=== PATIENT | male | born 1970 | race Caucasian/White ===

== ENCOUNTER 2023-10-15 10:50 | Emergency (ER) | payer MEDICARE, SELFPAY ==
--- NOTE | ~2023-10-15 | XR_ITS ---
XR finger 5th RT min 2V Ordering provider: Radha Boogie APRN History: . LACERATION TO 5TH DIGIT AT DISTAL PHALANGE THRU NAIL BED . Comparison: None. FINDINGS: BONES: No acute fracture or dislocation. Lucency seen in the distal metaphysis of the medial phalanx with no definite fracture. JOINT SPACES: Normal. SOFT TISSUES: Laceration is seen in the tip of the distal phalanx of the little finger IMPRESSION: No definite acute osseous abnormality. Reviewed, dictated and finalized at location A.
[2023-10-15 11:01] VITALS: BP 150/94; PULSE 84; RESP 20; TEMP 37.4; O2SAT 94
--- NOTE | 2023-10-15 11:21 | ED.WOUNDLAC ---
HPI - Wound/Laceration General Chief Complaint: Wound/Laceration Stated Complaint: Right Hand Finger Laceration Time Seen by Provider: 10/15/23 11:21 History of Present Illness HPI narrative: Patient presents with complaints of laceration to the right fifthfinger. He reports that he was pulling parts and a salvage chart today, is unsure of what exactly caused his laceration. He does need a tetanus updated today. There is active bleeding upon arrival. He denies other injury and trauma. Voices no other concerns or complaints at this time. Related Data Home Medications Medication Instructions Recorded Confirmed levothyroxine 150 mcg tablet 150 mcg PO DAILY 10/15/23 10/15/23 sertraline 50 mg tablet 50 mg PO DAILY 10/15/23 10/15/23 sodium chloride 0.9 % for 1 ml inhalation DAILY 10/15/23 10/15/23 nebulization tadalafil 10 mg tablet 10 mg PO DAILY PRN as needed 10/15/23 10/15/23 tizanidine 2 mg tablet 2 mg PO DAILY 10/15/23 10/15/23 Allergies Allergy/AdvReac Type Severity Reaction Status Date / Time No Known Allergies Allergy Verified 10/15/23 13:11 Review of Systems Review of Systems: All systems reviewed & are unremarkable except as noted in HPI and below Constitutional: Constitutional: Reports no additional constitutional complaints ENT: Reports system reviewed and no additional complaints, except as documented Cardiovascular: Cardiovascular: Reports no additional cardiovascular complaints Respiratory: Respiratory: Reports no additional respiratory complaints Gastrointestinal: Gastrointestinal: Reports no additional gastrointestinal complaints Integumentary/Breasts: Skin/Breast: Reports system reviewed and no additional complaints, except as docu, Reports as per HPI, Reports nail changes (fifth finger, right. Involved in laceration) and Reports wounds (Right fifth finger) Exam Const: General: cooperative, no acute distress, alert and awake Orientation/consciousness: oriented to person, oriented to place and oriented to time HENMT: Head: normal to inspection Resp: Effort & Inspection: normal respiratory effort and able to speak in complete sentences Auscultation: clear to auscultation bilaterally, no crackles, no rales, no rhonchi and no wheezes Cardio: Palpation: normal PMI Rate: regular rate Rhythm: regular rhythm Heart sounds: S1 normal heart sound present and S2 normal heart sound present Skin: Wounds: wounds noted laceration right distal 5th finger size (2) and open Neuro: General: oriented to person, oriented to place and oriented to time Cranial nerves: Yes CN's II-XII intact bilaterally Psych: Appearance: grossly normal Thought process: Normal thought process present Insight: Good insight present (Psych) Judgement: Good judgement present (Psych) Course Course Level of Care: Express Care Visit Vital Signs Vital signs: Vital Signs Temperature 99.3 F 10/15/23 11:01 Pulse Rate 84 10/15/23 11:01 Respiratory Rate 20 10/15/23 11:01 Blood Pressure 150/94 H 10/15/23 11:01 Pulse Oximetry 94 10/15/23 11:01 Oxygen Delivery Room Air 10/15/23 11:01 Temperature 99.3 F 10/15/23 11:01 Pulse Rate 84 10/15/23 11:01 Respiratory Rate 20 10/15/23 11:01 Blood Pressure 150/94 H 10/15/23 11:01 Pulse Oximetry 94 10/15/23 11:01 Oxygen Delivery Room Air 10/15/23 11:01 Procedures Laceration Laceration 1: Date: 10/15/23 Time: 12:45 Site: hand (Distal fifth finger) Size (cm): 2 Depth: simple, single layer ====== Skin Level ====== Skin layer closed with: prolene Size (cm): 4-0 Number of sutures: 5 Technique: simple, interrupted ====== Subcutaneous Layer ====== ====== Muscle Layer ====== ====== Tendon Layer ====== Nerve Block Nerve Block 1: Nerve block date: 10/15/23 Nerve block time: 12:24 Time out performed: Yes Local Anesthetic: lidocaine 1%
[2023-10-15] MEDS: TETANUS,DIPHTHERIA,AC PERTUSSIS ADULT (0.5 ML) BOOSTRIX IM (11:50)
[2023-10-15] MEDS: LIDOCAINE HCL 1% LOCAL INJ 2 ML AMPUL 8 ML INFILTRATE (12:00)
== END 2023-10-15 13:25 | disposition home or self-care (01) ==
PROVIDERS: Emergency Provider Nurse Practitioner Family
DX: S61.316A Laceration without foreign body of right little finger with damage to nail, initial encounter (principal); X58.XXXA Exposure to other specified factors, initial encounter; Z23 Encounter for immunization
CPT/HCPCS: 12001; 73140; 90471; 90715; 99212; G0463